=== PATIENT | female | born 1980 | race Asian ===

== ENCOUNTER 2018-02-08 16:43 | Emergency (ER) | payer SELFPAY ==
[~2018-02-08] VITALS: Ht 162.6 cm; Wt 54.4 kg
[2018-02-08 17:03] VITALS: BP 126/81
--- NOTE | 2018-02-08 17:11 | Emergency Room Report ---
History of Present Illness General Chief Complaint: Dizziness Source: Patient Present Illness HPI Patient is a 37-year-old female who presented after increased generalized weakness and near-syncope. The patient had been at a restaurant and subsequently had a feeling of lightheadedness. She reports having had nearly passed out. She reports having recently travel to the [place]. Allergies: Coded Allergies: No Known Allergies (Unverified , 02/08/18) Patient History Past Medical History: see triage record Reviewed Nursing Documentation: PMH: Agreed; PSxH: Agreed Nursing Documentation-PMH Past Medical History: No Stated History Review of Systems All Other Systems: negative except mentioned in HPI Physical Exam Vital Signs Date Time Temp Pulse Resp B/P (MAP) Pulse Ox O2 Delivery O2 Flow Rate FiO2 02/08/18 16:51 98.1 59 14 126/81 99 Room Air 98.1 General Appearance: well appearing, no apparent distress, alert, GCS 15, non- toxic Head: normocephalic, atraumatic ENT: hearing grossly normal, normal voice Neck: full range of motion, supple Respiratory: no respiratory distress, speaking full sentences Musculoskeletal: normal inspection, back normal, no calf tenderness Neurologic: normal inspection, alert, oriented x3, responsive, mimeographer III-XII nml as tested, normal gait Psychiatric: normal inspection, mood/affect normal Skin: normal inspection, no rash Medical Decision Making Diagnostic Impression: Primary Impression: Dizziness of unknown cause ER Course Patient presented for near syncope. Differential diagnoses included was not limited to anemia, ectopic , dehydration, among others. The patient appears to have some evidence of orthostasis. The patient refused all laboratory testing and all interventions. Patient stated that she did not want to be treated.The patient was advised risk benefits alternatives of leaving AGAINST MEDICAL ADVICE and she indicated understanding and all questions are answered patient still continued want to leave and signed AGAINST MEDICAL ADVICE. Despite risks including but not limited to disability and worsening of current lifestyle. Last Vital Signs Date Time Temp Pulse Resp B/P (MAP) Pulse Ox O2 Delivery O2 Flow Rate FiO2 02/08/18 17:03 98.1 59 14 126/81 99 Room Air 98.1 Status: unchanged Disposition: AGAINST MEDICAL ADVICE Condition: Unknown Alvaro Hansen MD Feb 08, 2018 17:11
[2018-02-08 17:43] VITALS: BP 126/81
== END 2018-02-08 17:43 | disposition left against medical advice (07) ==
LOC: EDBD 16:43 → EMR 17:20
DX: R42 Dizziness and giddiness (principal); R55 Syncope and collapse; R53.1 Weakness
CPT/HCPCS: 99281; 99283